=== PATIENT | female | born 1990 | race Two or more races ===

== ENCOUNTER 2022-03-23 23:22 | Emergency (ER) | payer SELFPAY ==
[~2022-03-23] VITALS: Ht 160 cm; Wt 72.0 kg
[2022-03-24 00:19] VITALS: BP 134/80
[2022-03-24] MEDS ORDERED: AZITTAB PO (01:11)
[2022-03-24] MEDS ORDERED: PRED20TA2 PO (01:11)
== END 2022-03-24 01:38 | disposition home or self-care (01) ==
LOC: ER 23:22
DX: J20.9 Acute bronchitis, unspecified (principal)